=== PATIENT | male | born 1970 | race Caucasian/White ===

== ENCOUNTER 2016-06-27 07:53 | Inpatient (IN) | payer OTHER ==
[2016-06-07 09:35] VITALS: BMI 24.0
--- NOTE | 2016-06-07 10:06 | PAT Medication Instructions ---
Service Date Jun 07, 2016. Current Home Medication List Acetaminophen (Tylenol Extra Strength), 500 MG PO Q6 Ascorbic Acid (Vitamin C), 1 TAB PO QAM B-Complex W/ Folic Acid (Super B Complex Maxi), 1 TAB PO QAM Cetirizine (Zyrtec), 10 MG PO QAM Cyclobenzaprine Hcl (Flexeril), 10 MG PO BID PRN for Muscle Spasms Ferrous Sulfate (Iron), 1 TAB PO QAM [place]-3 Fatty Acids (Fish Oil), 1,200 MG PO QAM Sumatriptan Succinate (Imitrex), 100 MG PO PRN Sumatriptan Succinate (Imitrex Statdose), 1 DOSE SQ UD PRN for Migraine Triamcinolone Acetonide (Nasal (Nasacort Allergy 24Hr), 1 SPRAY MEGHA QAM Turmeric (Curcuma Longa) (Bulk (Curcumin), 500 MG PO QAM [Magnesium], 250 MG PO QAM Medication Instructions For Your Scheduled Surgery - Hold the following medications 2 weeks prior to surgery: [place]-3 Fatty Acids (Fish Oil), 1,200 MG PO QAM Turmeric (Curcuma Longa) (Bulk (Curcumin), 500 MG PO QAM - Hold the following medications the morning of surgery: Ascorbic Acid (Vitamin C), 1 TAB PO QAM B-Complex W/ Folic Acid (Super B Complex Maxi), 1 TAB PO QAM [Magnesium], 250 MG PO QAM Cetirizine (Zyrtec), 10 MG PO QAM Cyclobenzaprine Hcl (Flexeril), 10 MG PO BID PRN for Muscle Spasms Ferrous Sulfate (Iron), 1 TAB PO QAM - Take the following medications the morning of surgery with a sip of water OTHERWISE NOTHING TO EAT OR DRINK AFTER MIDNIGHT: Triamcinolone Acetonide (Nasal (Nasacort Allergy 24Hr), 1 SPRAY MEGHA QAM Acetaminophen (Tylenol Extra Strength), 500 MG PO Q6 Sumatriptan Succinate (Imitrex), 100 MG PO PRN Sumatriptan Succinate (Imitrex Statdose), 1 DOSE SQ UD PRN for Migraine - Take the following medications as scheduled the night before surgery: Cyclobenzaprine Hcl (Flexeril), 10 MG PO BID PRN for Muscle Spasms Acetaminophen (Tylenol Extra Strength), 500 MG PO Q6 Sumatriptan Succinate (Imitrex), 100 MG PO PRN Sumatriptan Succinate (Imitrex Statdose), 1 DOSE SQ UD PRN for Migraine If you have any questions please call us at [phone] or [phone] or [phone]
[2016-06-07 10:30] LABS: BASO % 0.4 %; BASO ABS # 0.02 K/uL (0-0.2); COMPLETE YES; EOS % 1.2 %; HEMATOCRIT 40.3 % (42-52); IG% 0.2 %; LYMPH % 29.3 %; LYMPH ABS # 1.44 K/uL (1.2-3.4); MEAN CELL VOLUME 85.7 fL (80-100); MEAN CORPUSCULAR HEMOGLOBIN 31.1 pg (25-34); MEAN CORPUSCULAR HGB CONC 36.2 g/dl (32-36); MEAN PLATELET VOLUME 8.7 fL (7.4-10.4); MONO % 6.5 %; NEUT % 62.4 %; PLATELET COUNT 234 K/uL (130-400); WHITE BLOOD COUNT 4.92 K/uL (4.8-10.8)
--- NOTE | 2016-06-07 10:35 | DIAGNOSTIC IMAGING REPORT ---
CHEST PREADMISSION(PA/LAT) CLINICAL HISTORY: Preoperative chest COMPARISON STUDY: 08/18/2014 FINDINGS: The cardiac and mediastinal contours are normal. There is no focal pulmonary consolidation. There is no failure. There are no pleural effusions. There are postsurgical changes within the cervical spine.[ IMPRESSION: No active disease in the chest. Electronically signed by: Nicholas Ludwig M.D. 06/07/2016 10:33 AM Dictated Date/Time: 06/07/2016 10:30 AM
[2016-06-07 10:54] LABS: BUN/CREATININE RATIO 12.5 (10-20); CALCIUM 8.8 mg/dl (8.5-10.1); CREATININE 0.84 mg/dl (0.60-1.40)
[2016-06-07 11:29] LABS: URINE APPEARANCE CLEAR (CLEAR); URINE BILIRUBIN NEG (NEG); URINE COLOR YELLOW; URINE NITRITE NEG (NEG); URINE PH 7.5 (4.5-7.5); UROBILINOGEN NEG (NEG)
[2016-06-07 11:30] LABS: MANUAL MICROSCOPIC REQUIRED? NO; REVIEW REQ? NO
--- NOTE | 2016-06-25 16:58 | HISTORY & PHYSICAL EXAMINATION ---
DATE OF ADMISSION: 06/27/2016 HISTORY OF PRESENT ILLNESS: The patient presents to our office with a complaint of neck pain radiating down the left arm as well as right. He notes radiation to the chest wall as well. He has trialed injections with limited relief. He has had prior surgery in June 2014, which had gone on to pseudoarthrosis at the C6-C7 level. Denies numbness or paresthesias. PAST MEDICAL HISTORY: The patient's medical history is significant for skin cancer and migraine. PAST SURGICAL HISTORY: Significant for skin cancer excision and cervical surgery. ALLERGIES: None listed. MEDICATIONS: Atenolol 50 mg a day, Imitrex 100 mg as needed, magnesium, Super B supplement, fish oil, and CoQ10. 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 Denies alcohol. Denies tobacco. REVIEW OF SYSTEMS: Significant for neck and upper extremity pain. FAMILY HISTORY: Significant for cardiovascular disease, skin cancer, diabetes. PHYSICAL EXAMINATION: VITAL SIGNS: The patient is 5 feet, 6 inches; 155 pounds. HEENT: Speech appropriate. CARDIOPULMONARY: No gross abnormalities. ABDOMEN: Soft, nontender. GENITOURINARY: Deferred. NEUROLOGIC: Cranial nerves II-XII grossly intact. MUSCULOSKELETAL: The patient moves easily around the room. No atrophy of the upper extremities. Sensation is intact. Positive Spurling sign to the right. ASSESSMENT: Foraminal stenosis C6-C7 with known pseudoarthrosis. PLAN: We have reviewed surgical intervention which would require removing anterior plate and screws forming the corpectomy of C6. Reinstrumentation of C5 through C7. Risks, benefits, pros, cons, and alternatives were outlined in detail. The patient would like to proceed with the above-mentioned surgical planning. ETHAN
[2016-06-27] VITALS (13 sets, daily range): BP systolic 121–152; BP diastolic 73–92; PULSE 72–112; TEMP 36.4–37.4; O2SAT 97–100; Ht 167.6 cm; Wt 69.2 kg
[~2016-06-27] VITALS: Ht 167.6 cm; Wt 69.2 kg
--- NOTE | 2016-06-27 07:35 | History & Physical Bridge Note ---
H&P Re-Evaluation Bridge Note: I have examined the patient, reviewed the History & Physical and in the interval since the performance of the History & Physical I have noted the following changes of clinical significance: No changes noted
[~2016-06-27 07:53] MED LIST: ACET-1257 PO; ASCA500 PO; B-CO-25 PO; CETI10TA84 PO; CYCL10TA6 PO; FERR1TAB61 PO; MAGNESIUM PO; OMEG120013 PO; SUMA100T16 PO; SUMA6KIT SQ; TRIA1SPR4 NAE; TURMPOW2 PO
[2016-06-27] MEDS ORDERED: MIDAZOLAM HCL 1 MG/ML 2ML VIAL ONE (09:13)
[2016-06-27] MEDS ORDERED: FENTANYL CITRATE INJ 50 MCG/1 ML 2 ML VIAL ONE ×3 (09:13→10:23)
[2016-06-27] MEDS ORDERED: SCOPOLAMINE 1.5 MG TDSY TD ONE (09:25)
[2016-06-27] MEDS ORDERED: SUMATRIPTAN SUCC TAB 100 MG TAB PO ONE (09:30)
[2016-06-27] MEDS ORDERED: NURSING VERBAL MED ORDER ONE (09:30)
[2016-06-27] MEDS ORDERED: SODIUM CHLORIDE 0.9% PF 50 ML VIAL ONE (09:36)
[2016-06-27] MEDS ORDERED: BACITRACIN 50000 UNIT VIAL ONE (09:36)
[2016-06-27] MEDS ORDERED: HYDROmorphone INJ 2 MG/ML SYR/VIAL ONE (10:16)
[2016-06-27] MEDS ORDERED: DEXAMETHASONE SOD INJ 4 MG/ML VIAL ONE (10:29)
[2016-06-27] MEDS ORDERED: GLYCOPYRROLATE INJ 0.2 MG/ML VIAL ONE (10:29)
[2016-06-27] MEDS ORDERED: PROPOFOL IV EMULSION 10 MG/ML 20 ML VIAL IV ONE (10:29)
[2016-06-27] MEDS ORDERED: METOCLOPRAMIDE HCL INJ 5 MG/ML 2 ML VIAL ONE (10:29)
[2016-06-27] MEDS ORDERED: DiphenhydrAMINE HCL 50 MG/ML VIAL ONE (10:29)
[2016-06-27] MEDS ORDERED: ONDANSETRON INJ 2 MG/ML 2 ML VIAL ONE (10:29)
[2016-06-27] MEDS ORDERED: ROCURONIUM BROMIDE 10 MG/ML 5 ML VIAL ONE (10:29)
[2016-06-27] MEDS ORDERED: LIDOCAINE HCL 2% 2 ML VIAL (20MG/ML) ONE (10:29)
[2016-06-27] MEDS ORDERED: RANITIDINE HCL 25 MG/ML INJ ONE (10:29)
[2016-06-27] MEDS ORDERED: ESMOLOL HCL 10 MG/ML 10 ML VIAL ONE (10:29)
[2016-06-27] MEDS ORDERED: NEOSTIGMINE METHYLSULFATE 5 MG/5 ML SYR ONE (10:29)
[2016-06-27] MEDS ORDERED: ONDANSETRON INJ 2 MG/ML 2 ML VIAL IV PRN ×2 (11:00→11:45)
[2016-06-27] MEDS ORDERED: ATROPINE SULFATE 0.1 MG/ML 5ML SYR IV PRN (11:00)
[2016-06-27] MEDS ORDERED: HYDROmorphone INJ 2 MG/ML SYR/VIAL IV PRN (11:00)
[2016-06-27] MEDS ORDERED: LABETALOL HCL IV 5 MG/ML 20ML IV PRN (11:00)
[2016-06-27] MEDS ORDERED: DO NOT ADMINISTER PNEUMOCOCCAL VACCINE PRN ×2 (11:45)
[2016-06-27] MEDS ORDERED: DiphenhydrAMINE HCL 50 MG/ML VIAL IV PRN (11:45)
[2016-06-27] MEDS ORDERED: DO NOT ADMINISTER FLU VACCINE PRN ×3 (11:45)
[2016-06-27] MEDS ORDERED: RACEPINEPHRINE 2.25% NEBU SOLN 0.5 ML VIAL INH PRN (11:45)
[2016-06-27] MEDS ORDERED: LORAZEPAM 0.5 MG TAB PO PRN (11:45)
[2016-06-27] MEDS ORDERED: MAGNESIUM HYDROXIDE SUSP 30 ML UDC PO PRN (11:45)
[2016-06-27] MEDS ORDERED: ACETAMINOPHEN IV 1,000 MG in EMPTY BAG 0 ML IV PRN (11:45)
[2016-06-27] MEDS ORDERED: LORAZEPAM INJ 0.5 MG in SYRINGE 0.75 ML IV PRN (11:45)
[2016-06-27] MEDS ORDERED: CYCLOBENZAPRINE HCL 10 MG TAB PO PRN (11:45)
[2016-06-27] MEDS ORDERED: HYDROmorphone INJ 0.5 MG/0.5 ML SYR IV PRN (11:45)
[2016-06-27] MEDS ORDERED: DEXAMETHASONE INJ 8 MG in SYRINGE 0 ML IV PRN (11:45)
[2016-06-27] MEDS ORDERED: NALOXONE HCL 0.4 MG/1 ML VIAL/CARP IV PRN (11:45)
[2016-06-27] MEDS ORDERED: SUMATRIPTAN SUCC TAB 100 MG TAB PO PRN (11:45)
[2016-06-27] MEDS ORDERED: OXYCODONE HCL IR 5 MG TAB (IMMEDIATE RELEASE) PO PRN (11:45)
--- NOTE | 2016-06-27 11:45 | [facility] Post Operative Brief Note ---
Immediate Operative Summary Operative Date Jun 27, 2016. Pre-Operative Diagnosis Foraminal Stenosis C6 - C7 with known pseudoarthrosis Post-Operative Diagnosis Foraminal Stenosis C6 - C7 with known pseudoarthrosis Procedure(s) Performed C6 Removal of Cervical Vertebral Body, Adjacent Discs; Placement of Prosthetic Spacer; Application of Allograft; Anterior Plate and Screw Fixation; Plate Hardware Removal Surgeon Dr. Jovan Blackwell Incendiaries Supervisor Surgeon(s) Amalia Spence PA-C Estimated Blood Loss 50 Findings stenosis Specimens 0
[2016-06-27] MEDS ORDERED: FLOSEAL HEMOSTATIC MATRIX 5ML TOP ONE (11:47)
--- NOTE | 2016-06-27 12:00 | DIAGNOSTIC IMAGING REPORT ---
Cervical spine CERVICAL 2 OR 3 VIEWS CLINICAL HISTORY: C6 REMOVAL OF CERVICAL VERTEBRAL BODY fusion TECHNIQUE: Image intensifier COMPARISON STUDY: None FINDINGS: Images are acquired for intraoperative surgical planning purposes IMPRESSION: Revision of a low cervical fusion. Images are utilized for intraoperative evaluation and surgical planning Electronically signed by: Raheel Jha M.D. 06/27/2016 11:59 AM Dictated Date/Time: 06/27/2016 11:58 AM
--- NOTE | 2016-06-27 12:23 | OPERATIVE REPORT ---
DATE OF OPERATION: 06/27/2016 PREOPERATIVE DIAGNOSIS: Failed fusion C5-C6 and C6-C7 anterior cervical spine. POSTOPERATIVE DIAGNOSIS: Same. PROCEDURE PERFORMED: 1. Removal of anterior cervical instrumentation C5-C7. 2. Exploration of fusion C5-C6 and C6-C7. 3. Anterior cervical corpectomy C6. 4. Revision anterior cervical fusion C5-C7. 5. Placement of PEEK cage 23 mm in height at C5-C7. 6. Placement of locally harvested morselized autograft combined with Kassandra bone graft at C5-C7. 7. Placement of March plate and screws at C5-C7. SURGEON: Dr. Jovan Blackwell. BULK PALLET BUILDER: EMMETT Trivedi. ANESTHESIA: General. DISPOSITION: The patient awakened and taken to PACU in stable condition. HISTORY OF PATIENT'S PROBLEMS: This is a 45-year-old male who presents with above-mentioned diagnosis. After failing an extensive course of nonoperative care, elected to undergo the above-mentioned procedure. Risks, benefits, pros, cons, and alternatives were outlined in detail preoperatively. PROCEDURE: The patient was met with preoperatively, case discussed and all questions were addressed. At that point the patient was taken back to operative suite and after undergoing successful general intubation by the department of anesthesia was placed in supine position on Amrit table with head in Anderson miller head wet process. All bony prominences were well padded and the eyes were inspected to ensure there was no external pressure placed upon them. At this point the anterior cervical spine was prepped and draped in a normal sterile fashion. With the assistance of fluoroscopy, we identified the C5 vertebral body. A longitudinal incision was then placed along the right anterior aspect of the cervical spine overlying this region. We did encounter marked scarring, but were able to negotiate down through and into the anterior cervical spine with the assistance of bipolar electrocautery. The plate was identified and subsequently removed. We identified fractured screws in the C7 level. There was clear nonunion at the C6-C7 level of motion upon testing, questionable at C5-C6. [place] distracting pins were placed in the C5 and C7 vertebral body. We distracted across the C6 vertebral body and performed a complete corpectomy of the C6 vertebral body. This did include revision decompression at the 5-6, 6-7 levels. I removed all posterior fibers and longitudinal ligament. After this was complete, the endplates were then burred to subcortical bleeding bone and a PEEK cage filled with locally harvested morcellized autograft and Kassandra bone grafting was tapped in position. Distracting apparatus was removed and a March plate and screws applied with the assistance of fluoroscopy. Incision was then copiously irrigated and explored to ensure there was no damage to surrounding structures or remaining bleeding. A 10 round ANDRES drain inserted. It was then closed with 2-0 Vicryl in the fascia, 4-0 Monocryl for final skin closure. Steri-Strips and sterile dressing placed. The patient was awakened and taken to PACU in stable condition. Due to the complex nature of the procedure, the entire surgery was performed with the operational assistance of EMMETT Trivedi. The litigation legal assistant, under direct supervision, was involved in the actual performance of all aspects of the surgical procedure including hemostasis, tissue retraction and incision, instrument management, patient positioning, and wound closure. I attest to the content of the Intraoperative Record and any orders documented therein. Any exceptio ns are noted below.
--- NOTE | 2016-06-27 13:41 | Anesthesiology Progress Note ---
Anesthesia Post Op Note Date & Time Jun 27, 2016 at 13:40 Vital Signs Pain Intensity: 3 Vital Signs Past 12 Hours Date Time Temp Pulse Resp B/P Pulse Ox O2 Delivery O2 Flow Rate FiO2 06/27/16 13:15 79 16 154/92 100 Nasal Cannula 2 06/27/16 13:05 36.1 76 16 149/92 100 Nasal Cannula 2 06/27/16 12:55 68 14 156/86 100 Nasal Cannula 2 06/27/16 12:45 64 14 144/87 100 Nasal Cannula 2 06/27/16 12:35 76 18 152/89 100 Nasal Cannula 2 06/27/16 12:25 76 16 142/89 100 Nasal Cannula 2 06/27/16 12:15 80 16 150/99 100 Mask 15 06/27/16 12:05 77 12 134/89 100 Mask 15 06/27/16 11:57 36 77 12 111/64 94 Mask 15 06/27/16 08:38 36.6 97 18 141/88 99 Room Air Notes Mental Status: alert / awake / arousable, participated in evaluation Pt Amnestic to Procedure: Yes Nausea / Vomiting: adequately controlled Pain: adequately controlled Airway Patency, RR, SpO2: stable & adequate BP & HR: stable & adequate Hydration State: stable & adequate Anesthetic Complications: no major complications apparent
[2016-06-27] MEDS: LACTATED RINGER'S 1000ML 1,000 ML IV SCH (13:45)
[2016-06-27] MEDS ORDERED: CHECK SCOPOLAMINE PATCH PLACEMENT SCH (16:00)
[2016-06-27] MEDS: CHECK SCOPOLAMINE PATCH PLACEMENT SCH (16:00)
[2016-06-27] MEDS: CEFAZOLIN IV 1,000 MG in DEXTROSE 5% 50ML 50 ML IV SCH (17:48)
[2016-06-27] MEDS: DEXAMETHASONE INJ 6 MG in SYRINGE 0 ML IV SCH (17:49)
[2016-06-27] MEDS: ACETAMINOPHEN IV 1000MG/100ML IV PRN (20:04)
[2016-06-27] MEDS: DOCUSATE SODIUM 100 MG CAP PO SCH (21:00)
[2016-06-28] VITALS (11 sets, daily range): BP systolic 116–141; BP diastolic 66–91; PULSE 78–103; TEMP 37.2–37.7; O2SAT 95–98
[2016-06-28] MEDS: CHECK SCOPOLAMINE PATCH PLACEMENT SCH ×2 (00:08→07:31)
[2016-06-28] MEDS: LACTATED RINGER'S 1000ML 1,000 ML IV SCH (00:09)
[2016-06-28] MEDS: DEXAMETHASONE INJ 6 MG in SYRINGE 0 ML IV SCH ×2 (01:59→09:48)
[2016-06-28] MEDS: CEFAZOLIN IV 1,000 MG in DEXTROSE 5% 50ML 50 ML IV SCH ×2 (02:01→09:48)
[2016-06-28] MEDS: ACETAMINOPHEN IV 1000MG/100ML IV PRN (05:40)
[2016-06-28] MEDS ORDERED: LACTATED RINGER'S 1000ML 1,000 ML IV SCH (06:00)
[2016-06-28] MEDS ORDERED: CEFAZOLIN 1000MG/55 ML D5W IV SCH (06:00)
--- NOTE | 2016-06-28 08:08 | Anesthesiology Progress Note ---
Anesthesia Post Op Note Date & Time Jun 28, 2016 at 08:08 Vital Signs Pain Intensity: 1.0 Vital Signs Past 12 Hours Date Time Temp Pulse Resp B/P Pulse Ox O2 Delivery O2 Flow Rate FiO2 06/28/16 07:59 Room Air 06/28/16 07:42 37.2 97 17 121/66 96 Room Air 06/28/16 07:25 101 12 98 Room Air 06/28/16 05:27 37.2 101 16 116/72 95 Room Air 06/28/16 03:17 99 12 98 Nasal Cannula 2.0 06/28/16 02:28 37.3 06/28/16 01:55 37.7 102 16 126/76 98 Nasal Cannula 2.0 06/28/16 01:45 37.7 102 16 126/76 98 Nasal Cannula 2.0 06/27/16 23:45 36.9 109 16 123/76 97 Nasal Cannula 2.0 Humidified Oxygen 06/27/16 23:45 97 Nasal Cannula 2.0 Humidified Oxygen 06/27/16 23:20 72 12 97 Nasal Cannula 2.0 06/27/16 22:49 37.4 105 18 122/73 97 2.0 06/27/16 21:06 36.7 102 18 121/78 98 Notes Mental Status: alert / awake / arousable, participated in evaluation Pt Amnestic to Procedure: Yes Nausea / Vomiting: adequately controlled Pain: adequately controlled Airway Patency, RR, SpO2: stable & adequate BP & HR: stable & adequate Hydration State: stable & adequate Anesthetic Complications: no major complications apparent
[2016-06-28] MEDS: DOCUSATE SODIUM 100 MG CAP PO SCH (08:35)
[2016-06-28] MEDS ORDERED: TRIAMCINOLONE ACET NASAL SPRAY 10.8ML BTL NAE SCH (09:00)
[2016-06-28] MEDS ORDERED: CETIRIZINE HCL 10 MG TAB PO SCH (09:00)
--- NOTE | 2016-06-28 10:41 | Discharge Instructions ---
Discharge Instructions Admission Reason for Admission: Spinal Stenosis Discharge Discharge Diagnosis / Problem: stenosis Discharge Goals Goal(s): Improve function Activity Recommendations Activity Limitations: per Instructions/Follow-up section . Instructions / Follow-Up Instructions / Follow-Up ACTIVITY RECOMMENDATIONS: SELF CARE INSTRUCTIONS AFTER CERVICAL FUSIONS 1. No smoking. Smoking drastically decreases the chance of a solid fusion. 2. No bending, lifting more than 5 pounds, or twisting (roll like a log when turning in bed). 3. You may shower 3 days after surgery. Thoroughly dry wound. Do not soak in the tub. 4. Cervical collar: Must be worn at all times including sleeping. You may remove the brace only to bath, eat and if you are sitting in a recliner. 5. Please walk as much as you can for exercise. Gradually increase the distance that you walk as your endurance increases. SPECIAL CARE INSTRUCTIONS: VERY IMPORTANT TO READ AND REVIEW A. Do not take any anti-inflammatory medications (i.e. Indocin, Advil, Aspirin, Naprosyn, Aleve, Motrin, etc.) as these may inhibit the chance of a solid fusion. Tylenol is okay to take. B. Your surgical incision has been closed with a cosmetic suture under the skin that will dissolve in about 6 weeks. In 14 days, you can use a pair of clean scissors and cut the suture that is left outside of the skin at the ends of your incision. C. Complications are uncommon, but please contact us if you have any signs or symptoms of: 1. wound infection (fever higher than 102.5 degrees F, redness, separation of wound, drainage, or increasing pain from the incision) 2. blood clots in legs (pain, swelling, redness and warmth in legs) 3. urinary tract infection (fever higher than 102.5 degrees, burning upon urination or increased frequency of urination) 4. nerve problems (inability to walk on your toes or heels, numbness, loss of bowel or bladder control) 5. any other symptoms that concern you. D. Please call the office at if you have any concerns or questions about your operation or recovery. MANAGING PAIN AFTER SPINAL SURGERY 1. Narcotic medication is intended for short-term use and will be provided for surgical pain. Surgical pain usually lasts for a period of 4-6 weeks. Narcotic medication includes Percocet, Vicodin, Darvocet, Tylenol #3 or Lortab. 2. Longer-term pain is more appropriately treated with non-narcotic medication such as Tylenol ES. 3. Muscle spasm is not appropriately treated with narcotics. Muscle relaxers such as Soma, Flexeril or Skelaxin can be used along with Tylenol ES. 4. Remember that we all live with some "aches and pains". This is not unusual or uncommon after an injury or as we get older. 5. We will provide appropriate medication within the normal guidelines of their prescribed use. We will also be very cautious and aware of potential abuse and extended duration of patients' medication needs. 6. Please allow 2-3 days to process refills. Prescriptions will not be mailed but must be picked up at the office. FOLLOW UP VISIT: Keep your scheduled follow-up appointment. Any questions, please call the office at . Current Hospital Diet Patient's current hospital diet: Clear Liquid Diet Discharge Diet Recommended Diet: Regular Diet Procedures Procedures Performed: C6 Removal of Cervical Vertebral Body, Adjacent Discs; Placement of Prosthetic Spacer; Application of Kassandra; Anterior Plate and Screw Fixation C5-C7; Plate/Screws Hardware Removal C5-C7 Pending Studies Studies pending at discharge: no Medical Emergencies . Who to Call and When: Medical Emergencies: If at any time you feel your situation is an emergency, please call 911 immediately. . Non-Emergent Contact Non-Emergency issues call your: Primary Care Provider . "Provider Documentation" section prepared by Jovan Blackwell. VTE Core Measure Inpt VTE Proph given/why not?: Zena Marte, SCD's
--- NOTE | 2016-06-28 11:17 | DISCHARGE SUMMARY ---
PRINCIPAL DIAGNOSIS: Spinal stenosis, nonunion cervical spine. POSTOPERATIVE DIAGNOSIS: Same. HOSPITAL COURSE FOLLOWS: On June 27, the patient underwent anterior cervical corpectomy and fusion, tolerated this well and taken to the orthopedic floor postoperatively. Postop day #1, he was swallowing well, no hoarseness. ANDRES drain decreased appropriately. Arm pain improved. Subsequently discharged home. Discharge orders and instructions found on the chart for further review.
[2016-06-29] MEDS ORDERED: BISACODYL 5 MG TABEC PO PRN (06:00)
[2016-06-29] MEDS ORDERED: BISACODYL 10 MG SUPP PR PRN (06:00)
[2016-06-29] MEDS ORDERED: POLYETHYLENE (MIRALAX) 17 GM PACK PO SCH (09:00)
[2016-06-30] MEDS ORDERED: SCOPOLAMINE 1.5 MG TDSY TD SCH (10:00)
== END 2016-06-28 13:48 | disposition home or self-care (01) | DRG 473 ==
LOC: ENRESERVTM → ENRESERVDT → C.ACU 07:53 → C.3E 09:30
PROVIDERS: ADMIT Orthopaedic Surgery Orthopaedic Surgery of the Spine; ATTEND Orthopaedic Surgery Orthopaedic Surgery of the Spine
PROC: 0RP104Z Removal of Internal Fixation Device from Cervical Vertebral Joint, Open Approach (ICD-10-PCS; principal; 2016-06-27 09:45)
PROC: 0RG20A0 Fusion of 2 or more Cervical Vertebral Joints with Interbody Fusion Device, Anterior Approach, Anterior Column, Open Approach (ICD-10-PCS; principal; 2016-06-27 09:45)
PROC: 01N10ZZ Release Cervical Nerve, Open Approach (ICD-10-PCS; principal; 2016-06-27 09:45)
PROC: 0RG1070 Fusion of Cervical Vertebral Joint with Autologous Tissue Substitute, Anterior Approach, Anterior Column, Open Approach (ICD-10-PCS; principal; 2016-06-27 09:45)
DX: M96.0 Pseudarthrosis after fusion or arthrodesis (principal); M48.02 Spinal stenosis, cervical region; Y83.8 Other surgical procedures as the cause of abnormal reaction of the patient, or of later complication, without mention of misadventure at the time of the procedure; I34.1 Nonrheumatic mitral (valve) prolapse; I34.0 Nonrheumatic mitral (valve) insufficiency; G43.909 Migraine, unspecified, not intractable, without status migrainosus; Z98.1 Arthrodesis status; Z79.899 Other long term (current) drug therapy